=== PATIENT | male | born 1965 | race Hispanic/Latino ===

== ENCOUNTER 2018-09-22 09:54 | Emergency (ER) | payer OTHER ==
[2018-09-22 11:37] LABS: Absolute Lymphocytes (CBC) 1.8 K/uL (0.7-4.9); Absolute Monocytes 0.5 K/uL (0.1-1.3); Absolute Neutrophil 4.8 K/uL (1.8-8.0); Basophils % 0.5 % (0-1.3); Eosinophils % 2.1 % (0-4.4); Hematocrit 46.3 % (39.6-49.0); Lymphocytes % 24.8 % (15.3-44.8); MPV 7.9 fL (7.6-11.3); RBC Red Blood Cell Count 5.16 M/uL (4.33-5.43)
[2018-09-22] MEDS ORDERED: NA CHLORIDE 0.9% 1,000 ML ONE ×2 (11:43→11:47)
[2018-09-22] MEDS ORDERED: ONDANSETRON 4 MG/2 ML VIAL ONE (11:43)
[2018-09-22 11:50] LABS: Albumin 3.6 g/dL (3.4-5.0); Bilirubin Direct 1.8 mg/dL (0-0.2); Bilirubin Total 2.4 mg/dL (0.2-1.0); Protein, Total 7.2 g/dL (6.4-8.2)
--- NOTE | 2018-09-22 12:16 | RAD REPORT ---
EXAM DESCRIPTION: CTAbdomen Pelvis W Contrast - 09/22/2018 12:08 pm CLINICAL HISTORY: Abdominal pain. ABD PAIN COMPARISON: No comparisons TECHNIQUE: Biphasic CT imaging of the abdomen and pelvis was performed with 100 ml non-ionic IV cont rast. All CT scans are performed using dose optimization technique as appropriate and may include automated exposure control or mA/KV adjustment according to patient size. FINDINGS: The lung bases are clear.Cholelithiasis. Stone appears to be present in the proximal aspec t of the common bile duct. The liver, spleen, pancreas, adrenal glands and kidneys are within normal limits. No bowel obstruction, free air, free fluid or abscess. Sigmoid diverticulosis without diverticulitis. The appendix is normal. No evidence of significant lymphadenopathy. No suspicious bony findings. Small fat containing left inguinal hernia. IMPRESSION: Cholelithiasis with proximal choledocholithiasis suspected. No intrahepatic biliary tree dilatation of significance.
[2018-09-22] MEDS ORDERED: KETOROLAC 30 MG/ML INJ ONE (12:38)
[2018-09-22 12:47] LABS: Urine Blood NEGATIVE (NEG); Urine Glucose TRACE (NEG); Urine Protein NEGATIVE (NEG); Urine Specific Gravity 1.025 (1.005-1.030); Urine pH 5.5 (5.0-7.0)
--- NOTE | 2018-09-22 12:57 | RAD REPORT ---
EXAM DESCRIPTION: US - Abdomen Exam Limited - 09/22/2018 12:37 pm CLINICAL HISTORY: EPIGASTRIC PAIN COMPARISON: Abdomen Pelvis W Contrast dated 09/22/2018 FINDINGS: The gallbladder demonstrates several shadowing gallstones. No pericholecystic fluid or gal lbladder wall thickening. The common bile duct is mildly dilated measuring 10 mm. The liver demonstrates mild fatty liver. IMPRESSION: Cholelithiasis. Dilated CBD measuring up to 10 mm.
--- NOTE | 2018-09-22 13:22 | EDPHYS ---
Physician Documentation [facility] Name: Ryne Jasso Jr Age: 53 yrs Sex: Male : 1965 Arrival Date: 09/22/2018 Time: 09:57 Bed 18 Private MD: None, None ED Physician Roger Perkins HPI: 09/22 10:52 This 53 yrs old Male presents to ER via Ambulatory with complaints of pm1 Abdominal Pain, Vomiting. 10:52 The patient presents with abdominal pain in the lower abdomen. Onset: The pm1 symptoms/episode began/occurred last night. The symptoms do not radiate. Associated signs and symptoms: Pertinent positives: nausea and vomiting, Pertinent negatives: chest pain, constipation, diarrhea, dysuria, fever, palpitations, shortness of breath, testicular pain. The symptoms are described as crampy. Modifying factors: The symptoms are alleviated by nothing, the symptoms are aggravated by food. Severity of pain: in the emergency department the pain is unchanged. The patient has not experienced similar symptoms in the past. The patient has not recently seen a physician. Patient with lower crampy abdominal pain that started yesterday about one hour after eating a sandwich. Pain resolved then he ate some pizza for dinner. Crampy lower abdominal pain returned at night with 3 episodes of vomiting. This morning with 1 episode of vomiting and abdominal pain still present. No diarrhea. No fever. Historical: - Allergies: 10:23 tramadol; hb - Home Meds: 10:23 Lisinopril Oral [Active]; hb - PMHx: 10:23 Hypertension; hb - PSHx: 10:24 Arm - LEFT; hb - Immunization history:: Adult Immunizations up to date. - Social history:: Smoking status: Patient/guardian denies using tobacco. - Ebola Screening: : No symptoms or risks identified at this time. ROS: 10:52 Constitutional: Negative for fever, chills, and weight loss, Eyes: Negative for injury, pm1 pain, redness, and discharge, ENT: Negative for injury, pain, and discharge, Neck: Negative for injury, pain, and swelling, Cardiovascular: Negative for chest pain, palpitations, and edema, Respiratory: Negative for shortness of breath, cough, wheezing, and pleuritic chest pain, Back: Negative for injury and pain. 10:52 : Negative for injury, bleeding, discharge, and swelling, MS/Extremity: Negative for injury and deformity, Skin: Negative for injury, rash, and discoloration, Neuro: Negative for headache, weakness, numbness, tingling, and seizure. 10:52 Abdomen/GI: Positive for abdominal pain, nausea and vomiting, Negative for diarrhea, constipation. Exam: 10:52 Constitutional: This is a well developed, well nourished patient who is awake, alert, pm1 and in no acute distress. Head/Face: Normocephalic, atraumatic. Eyes: Pupils equal round and reactive to light, extra-ocular motions intact. Lids and lashes normal. Conjunctiva and sclera are non-icteric and not injected. Cornea within normal limits. Periorbital areas with no swelling, redness, or edema. ENT: Nares patent. No nasal discharge, no septal abnormalities noted. Tympanic membranes are normal and external auditory canals are clear. Oropharynx with no redness, swelling, or masses, exudates, or evidence of obstruction, uvula midline. Mucous membranes moist. Neck: Trachea midline, no thyromegaly or masses palpated, and no cervical lymphadenopathy. Supple, full range of motion without nuchal rigidity, or vertebral point tenderness. No Meningismus. Chest/axilla: Normal chest wall appearance and motion. Nontender with no deformity. No lesions are appreciated. Cardiovascular: Regular rate and rhythm with a normal S1 and S2. No gallops, murmurs, or rubs. Normal PMI, no JVD. No pulse deficits. Respiratory: Lungs have equal breath sounds bilaterally, clear to auscultation and percussion. No rales, rhonchi or wheezes noted. No increased work of breathing, no retractions or nasal flaring. 10:52 Back: No spinal tenderness. No costovertebral tenderness. Full range of motion. Skin: Warm, dry with normal turgor. Normal color with no rashes, no lesions, and no evidence of cellulitis. MS/ Extremity: Pulses equal, no cyanosis. Neurovascular intact. Full, normal range of motion. 10:52 Abdomen/GI: Inspection: obese Bowel sounds: normal, Palpation: soft, mild abdominal tenderness, in the left lower quadrant, mass, is not appreciated, rebound tenderness, is not appreciated. 10:52 Neuro: Orientation: is normal, Motor: is normal, Sensation: is normal, no obvious gross deficits, Gait: is steady, at a normal pace, without difficulty. Vital Signs: 10:23 BP 147 / 98; Pulse 88; Resp 16; Temp 97.2; Pulse Ox 100% on R/A; Pain 4/10; hb 11:26 BP 125 / 72; Pulse 69; Resp 18; Pulse Ox 97% on R/A; aj1 13:08 BP 142 / 83; Pulse 72; Resp 18; Pulse Ox 99% on R/A; aj1 13:23 Weight 139.71 kg; em1 14:40 BP 126 / 79; Pulse 75; Resp 18; Pulse Ox 97% on R/A; aj1 MDM: 10:29 Patient medically screened. pm1 10:56 Data reviewed: vital signs. Data interpreted: Pulse oximetry: on room air is 100 %. pm1 Interpretation: normal. 13:18 Physician consultation: Rogers Curtis MD was called at 13:18, was contacted at 13:18, pm1 regarding consult, patient's condition, No GI production underwriter but I called Dr. Curtis GI, to see if he would be available to see the patient. He will be out of town tomorrow. Recommends transfer. 13:19 Counseling: I had a detailed discussion with the patient and/or guardian regarding: the pm1 historical points, exam findings, and any diagnostic results supporting the discharge/admit diagnosis, lab results, radiology results, the need to transfer to another facility, [facility] does not immediately have the required specialist. 14:10 Physician consultation: MD Delatorre was contacted at 14:08, regarding regarding pm1 transfer, patient's condition, and will see patient. 09/22 10:37 Order name: Basic Metabolic Panel; Complete Time: 11:53 pm1 09/22 10:37 Order name: CBC with Diff; Complete Time: 11:43 pm1 09/22 10:37 Order name: Creatinine for Radiology; Complete Time: 11:43 pm1 09/22 10:37 Order name: Hepatic Function; Complete Time: 11:53 pm1 09/22 10:37 Order name: Lipase; Complete Time: 11:53 pm1 09/22 11:37 Order name: Urine Dipstick--Ancillary (enter results); Complete Time: 12:48 em1 01/16 10:37 Order name: IV Saline Lock; Complete Time: 11:14 pm1 09/22 10:37 Order name: Labs collected and sent; Complete Time: 11:14 pm1 09/22 10:37 Order name: Urine Dipstick-Ancillary (obtain specimen); Complete Time: 11:30 pm1 09/22 10:37 Order name: CT Abd/Pelvis - W/Contrast: IV contrast only; Complete Time: 12:17 pm1 09/22 12:19 Order name: US Abdomen Limited; Complete Time: 13:00 pm1 Administered Medications: 11:39 Drug: Zofran 4 mg Route: IVP; Site: right antecubital; aj1 11:39 Drug: NS 0.9% 1000 ml Route: IV; Rate: 1000 ml; Site: right antecubital; aj1 13:07 Not Given (Patient states that he is allergic): TORadol 30 mg IVP once aj1 Disposition: 17:53 Co-signature as Attending Physician, Roger Perkins MD. rn Disposition: 09/22/18 13:21 Transfer ordered to [facility]. Diagnosis are Choledocholithiasis, Cholelithiasis. - Reason for transfer: Specialty. - Accepting physician is [facility]. - Condition is Stable. - Problem is new. - Symptoms have improved. Signatures: Dispatcher [employer] Monica Foss RN RN aj1 Roger Perkins MD MD rn Smirch, Shelby, RN RN ss Jeremiah Taylor, CRISTINA GAS FLOW REGULATOR pm1 Amy Michelle RN RN hb Corrections: (The following items were deleted from the chart) 10:17 10:16 Allergies: No Known Allergies; hb hb 10:17 10:16 Home Meds: Zyrtec Oral; hb hb 10:17 10:16 Home Meds: Albuterol Inhl; hb hb 10:17 10:16 Home Meds: Flonase 50 mcg/actuation Nasal spsn 1 spray 2 times per day; hb hb 10:17 10:16 Home Meds: Singulair Oral; hb hb 10:17 10:16 PMHx: Asthma; hb hb 10:17 10:16 PSHx: None; hb hb 15:35 13:21 09/22/2018 13:21 Transfer ordered to [facility]. ss Diagnosis is Choledocholithiasis; Cholelithiasis. Reason for transfer: Specialty. Accepting physician is Elizabet Magaña. Condition is Stable. Problem is new. Symptoms have improved. pm1
--- NOTE | 2018-09-22 13:22 | ER ---
Nurse's Notes [facility] Name: Ryne Jasso Jr Age: 53 yrs Sex: Male : 1965 Arrival Date: 09/22/2018 Time: 09:57 Bed 18 Private MD: None, None Diagnosis: Choledocholithiasis;Cholelithiasis Presentation: 09/22 10:14 Transition of care: patient was not received from another setting of care. Onset of hb symptoms was September 22, 2018. Risk Assessment: Do you want to hurt yourself or someone else? Patient reports no desire to harm self or others. Care prior to arrival: None. 10:14 Method Of Arrival: Ambulatory hb 10:14 Acuity: CHILANGO 3 hb 10:16 Presenting complaint: Patient states: N/V and abdominal cramping x 2 days. Not hb tolerating fluids. 14:45 Initial Sepsis Screen: Does the patient meet any 2 criteria? No. Patient's initial aj1 sepsis screen is negative. Does the patient have a suspected source of infection? No. Patient's initial sepsis screen is negative. Historical: - Allergies: 10:23 tramadol; hb - Home Meds: 10:23 Lisinopril Oral [Active]; hb - PMHx: 10:23 Hypertension; hb - PSHx: 10:24 Arm - LEFT; hb - Immunization history:: Adult Immunizations up to date. - Social history:: Smoking status: Patient/guardian denies using tobacco. - Ebola Screening: : No symptoms or risks identified at this time. Screenin:23 Abuse screen: Denies threats or abuse. Denies injuries from another. Nutritional hb screening: No deficits noted. Tuberculosis screening: No symptoms or risk factors identified. Fall Risk None identified. Assessment: 10:40 General: Appears in no apparent distress. comfortable, Behavior is calm, cooperative, aj1 appropriate for age. Pain: Complains of pain in right lower quadrant and left lower quadrant Pain does not radiate. Quality of pain is described as crampy, Pain began 2-3 days ago. Neuro: Level of Consciousness is awake, alert, obeys commands, Oriented to person, place, time, situation. Cardiovascular: Patient's skin is warm and dry. Respiratory: Airway is patent Respiratory effort is even, unlabored, Respiratory pattern is regular, symmetrical. GI: Abdomen is distended, non-distended, Bowel sounds present X 4 quads. Abd is soft X 4 quads Abdomen is tender to palpation X 4 quads. Reports nausea, vomiting, Patient currently denies diarrhea. : No signs and/or symptoms were reported regarding the genitourinary system. EENT: No signs and/or symptoms were reported regarding the EENT system. Derm: No signs and/or symptoms reported regarding the dermatologic system. Skin is pink, warm \T\ dry. normal. Musculoskeletal: No signs and/or symptoms reported regarding the musculoskeletal system. Circulation, motion, and sensation intact. 11:26 Reassessment: Patient appears in no apparent distress at this time. No changes from aj1 previously documented assessment. Patient and/or family updated on plan of care and expected duration. Pain level reassessed. Patient is alert, oriented x 3, equal unlabored respirations, skin warm/dry/pink. 12:30 Reassessment: Patient appears in no apparent distress at this time. No changes from aj1 previously documented assessment. Patient and/or family updated on plan of care and expected duration. Pain level reassessed. Patient is alert, oriented x 3, equal unlabored respirations, skin warm/dry/pink. 13:08 Reassessment: Patient appears in no apparent distress at this time. No changes from aj1 previously documented assessment. Patient and/or family updated on plan of care and expected duration. Pain level reassessed. Patient is alert, oriented x 3, equal unlabored respirations, skin warm/dry/pink. 14:00 Reassessment: Patient and/or family updated on plan of care and expected duration. Pain aj1 level reassessed. General: Appears in no apparent distress. comfortable, Behavior is calm, cooperative, appropriate for age. Neuro: Level of Consciousness is awake, alert, obeys commands. Cardiovascular: Patient's skin is warm and dry. Respiratory: Airway is patent Respiratory effort is even, unlabored, Respiratory pattern is regular, symmetrical. GI: Abdomen is round non-distended, obese, Abd is soft X 4 quads Abdomen is tender to palpation X 4 quads. Derm: Skin is pink, warm \T\ dry. normal. Musculoskeletal: Circulation, motion, and sensation intact. Vital Signs: 10:23 BP 147 / 98; Pulse 88; Resp 16; Temp 97.2; Pulse Ox 100% on R/A; Pain 4/10; hb 11:26 BP 125 / 72; Pulse 69; Resp 18; Pulse Ox 97% on R/A; aj1 13:08 BP 142 / 83; Pulse 72; Resp 18; Pulse Ox 99% on R/A; aj1 13:23 Weight 139.71 kg; em1 14:40 BP 126 / 79; Pulse 75; Resp 18; Pulse Ox 97% on R/A; aj1 ED Course: 09:57 Patient arrived in ED. sb2 09:58 None, None is Private Physician. sb2 10:15 Triage completed. hb 10:16 Arm band placed on. hb 10:29 Jeremiah Taylor, CRISTINA is PHCP. pm1 10:29 Roger Perkins MD is Attending Physician. pm1 11:09 Initial lab(s) drawn, by me, sent to lab. Inserted saline lock: 20 gauge in right dh3 antecubital area, using aseptic technique. Blood collected. 11:14 Monica Santamaria RN is Primary Nurse. aj1 11:30 Urine collected: clean catch specimen, elisabet colored. dh3 12:07 CT completed. Patient tolerated procedure well. Patient moved to CT via wheelchair. jg6 12:12 CT Abd/Pelvis - W/Contrast: IV contrast only In Process Unspecified. EDMS 12:37 Note: us done bedside in er/completed. lc3 12:38 US Abdomen Limited In Process Unspecified. EDMS 14:44 No provider procedures requiring assistance completed. aj1 14:45 Patient has correct armband on for positive identification. Bed in low position. Call aj1 light in reach. Side rails up X 1. Report given to MARIETTA Cadet at [facility]. 15:34 Patient transferred, IV remains in place. ss Administered Medications: 11:39 Drug: Zofran 4 mg Route: IVP; Site: right antecubital; aj1 11:39 Drug: NS 0.9% 1000 ml Route: IV; Rate: 1000 ml; Site: right antecubital; aj1 13:07 Not Given (Patient states that he is allergic): TORadol 30 mg IVP once aj1 Outcome: 13:21 ER care complete, transfer ordered by . pm1 15:35 Transferred by ground EMS to [facility]. ss 15:35 Condition: good 15:35 Instructed on the need for transfer, Demonstrated understanding of instructions. 15:35 Patient left the ED. Signatures: Dispatcher [employer] EDMS Monica Santamaria, RN RN aj1 Ady Jasso em1 Haylee Valderrama RN RN Kendy Sifuentes Patrick, INTERACTIVE WEB DEVELOPER INTERACTIVE WEB DEVELOPER pm1 Amy Michelle RN RN Hunt, Maggie 3 Sandy Robert 2 Mariah Henson [id number] Corrections: (The following items were deleted from the chart) 10:17 10:13 BP 140 / 100; Pulse 110bpm; Resp 16bpm; Pulse Ox 100% RA; Temp 97.4F; Pain 0/10; hb hb 10:17 10:14 Presenting complaint: Mother states: N/V and anxiety since 0800. Pt went to school nurse saying she thought someone put something in her coffee. 10:17 10:16 Allergies: No Known Allergies; [facility] 10:17 10:16 Home Meds: Zyrtec Oral; [facility] 10:17 10:16 Home Meds: Albuterol Inhl; [facility] 10:17 10:16 Home Meds: Flonase 50 mcg/actuation Nasal spsn 1 spray 2 times per day; [facility] 10:17 10:16 Home Meds: Singulair Oral; [facility] 10:17 10:16 PMHx: Asthma; [facility] 10:17 10:16 PSHx: None; hb 15:35 14:44 Patient admitted, IV remains in place. aj1
== END 2018-09-22 15:35 | disposition short-term general hospital (02) ==
LOC: ER 09:54
DX: K80.70 Calculus of gallbladder and bile duct without cholecystitis without obstruction (principal); I10 Essential (primary) hypertension; Z79.899 Other long term (current) drug therapy
CPT/HCPCS: 36415; 74177; 76705; 80048; 80076; 81003; 83690; 85025; 96374; 99285; J2405; J7030; Q9967